=== PATIENT | female | born 1995 ===

== ENCOUNTER 2017-04-15 16:28 | Emergency (ER) | payer OTHER ==
[2017-04-15 17:45] LABS: EGFR Non-African American 103.3 (>60)
[2017-04-15 17:49] LABS: ABS Basophils 0 10^3/ul (0-0.2); ABS Eosinophils 0 10^3/ul (0-0.6); ABS Lymphocytes 1.5 10^3/ul (1.0-4.8); ABS Monocytes 0.4 10^3/ul (0-0.8); ABS Nucleated RBC 0 10^3/ul; Eosinophil % 0.1 % (0-6); Hematocrit 40 % (35-47); Hemoglobin 13.8 g/dl (12.0-16.0); Lymphocyte % 16.9 % (25-47); Mean Corpuscular HGB Conc 35 g/dl (31-36); Mean Corpuscular Hemoglobin 29 pg (27-31); Mean Corpuscular Volume 84 fL (80-97); Mean Platelet Volume 8 um3 (7.4-10.4); Nucleated Red Blood Cells % 0; Platelet Count 273 10^3/ul (150-450); Red Blood Count 4.72 10^6/ul (4.0-5.4); Red Cell Distribution Width 13 % (10.5-15)
[2017-04-15] MEDS ORDERED: Iohexol 350* (CONTRAST) 500 ML MDV IV ONE (18:34)
--- NOTE | 2017-04-15 18:43 | ED ---
Ran Nugent Thomas, scribed for Margarito Banuelos MD on 04/15/17 at 1839 . HPI Chest Pain - HPI Summary HPI Summary: The patient is a 22 year old female referred from [facility] to rule out pulmonary embolism. The patient complains of chest tightness on both sides of her chest that began last week, went away, and then came back three days ago. The pain is worse with exertion. The patient is on oral contraceptives. She denies calf pain. - History of Current Complaint Chief Complaint: EDChestWallPain Time Seen by Provider: 04/15/17 18:26 Hx Obtained From: Patient Onset/Duration: Started Weeks Ago - one week, Still Present Timing: Constant Current Severity: Moderate Pain Intensity: 4 Pain Scale Used: 0-10 Numeric Character: Tightness Aggravating Factor(s): Other: - Exertion Alleviating Factor(s): Nothing Associated Signs and Symptoms: Positive: Chest Pain. Negative: Fever, Other: - calf pain - Allergy/Home Medications Home Medications: Home Medications Albuterol HFA INHALER* [Ventolin HFA Inhaler*] 2 puff INH .Q4-6H PRN 04/15/17 [ History Confirmed 04/15/17] Estradiol/Norethindrone Acet [Activella 1 mg-0.5 mg Tablet] 1 each PO DAILY [History Confirmed 04/15/17] PMH/Surg Hx/FS Hx/Imm Hx Endocrine/Hematology History: Denies: Hx Diabetes Cardiovascular History: Denies: Hx Hypertension Infectious Disease History: No Infectious Disease History: Denies: Traveled Outside the [place] in Last 30 Days - Family History Known Family History: Positive: Hypertension - Social History Occupation: Student Alcohol Use: None Hx Substance Use: No Substance Use Type: Reports: None Hx Tobacco Use: No Smoking Status (MU): Never Smoked Tobacco Review of Systems Negative: Fever Positive: Chest Pain Negative: Other - calf tenderness All Other Systems Reviewed And Are Negative: Yes Physical Exam - Summary Physical Exam Summary: VITAL SIGNS: Reviewed. GENERAL: Patient is a well-developed and nourished female who is lying comfortable in the stretcher. Patient is not in any acute respiratory distress. HEAD AND FACE: No signs of trauma. No ecchymosis, hematomas or skull depressions. No sinus tenderness. EYES: PERRLA, EOMI x 2, No injected conjunctiva, no nystagmus. EARS: Hearing grossly intact. Ear canals and tympanic membranes are within normal limits. MOUTH: Oropharynx within normal limits. NECK: Supple, trachea is midline, no adenopathy, no JVD, no carotid bruit, no c- spine tenderness, neck with full ROM. CHEST: Symmetric, no tenderness at palpation LUNGS: Clear to auscultation bilaterally. No wheezing or crackles. CVS: Regular rate and rhythm, S1 and S2 present, no murmurs or gallops appreciated. ABDOMEN: Soft, non-tender. No signs of distention. No rebound no guarding, and no masses palpated. Bowel sounds are normal. EXTREMITIES: FROM in all major joints, no edema, no cyanosis or clubbing. NEURO: Alert and oriented x 3. No acute neurological deficits. Speech is normal and follows commands. SKIN: Dry and warm Triage Information Reviewed: Yes Vital Signs On Initial Exam: Initial Vitals Temp Pulse Resp BP Pulse Ox 99.1 F 89 20 135/80 99 04/15/17 16:32 04/15/17 16:32 04/15/17 16:32 04/15/17 16:32 04/15/17 16:32 Vital Signs Reviewed: Yes Diagnostics - Vital Signs Vital Signs Temp Pulse Resp BP Pulse Ox 04/15/17 16:32 99.1 F 89 20 135/80 99 - Laboratory Lab Results: Lab Results 04/15/17 04/15/17 04/15/17 Range/Units 17:22 17:22 17:22 WBC 9.0 (3.5-10.8) 10^3/ul RBC 4.72 (4.0-5.4) 10^6/ul Hgb 13.8 (12.0-16.0) g/dl Hct 40 (35-47) % MCV 84 (80-97) fL MCH 29 (27-31) pg MCHC 35 (31-36) g/dl RDW 13 (10.5-15) % Plt Count 273 (150-450) 10^3/ul MPV 8 (7.4-10.4) um3 Neut % (Auto) 77.8 (38-83) % Lymph % (Auto) 16.9 L (25-47) % Stephenson % (Auto) 4.7 (1-9) % Eos % (Auto) 0.1 (0-6) % Baso % (Auto) 0.5 (0-2) % Absolute Neuts (auto) 7.0 (1.5-7.7) 10^3/ul Absolute Lymphs (auto) 1.5 (1.0-4.8) 10^3/ul Absolute Monos (auto) 0.4 (0-0.8) 10^3/ul Absolute Eos (auto) 0 (0-0.6) 10^3/ul Absolute Basos (auto) 0 (0-0.2) 10^3/ul Absolute Nucleated RBC 0 10^3/ul Nucleated RBC % 0 D-Dimer, Quantitative 508 H (Less Than 230) ng/mL Sodium 135 (133-145) mmol/L Potassium 3.8 (3.5-5.0) mmol/L Chloride 100 L (101-111) mmol/L Carbon Dioxide 27 (22-32) mmol/L Anion Gap 8 (2-11) mmol/L BUN 12 (6-24) mg/dL Creatinine 0.72 (0.51-0.95) mg/dL Est GFR ( Amer) 132.8 (>60) Est GFR (Non-Af Amer) 103.3 (>60) BUN/Creatinine Ratio 16.7 (8-20) Glucose 90 (70-100) mg/dL Calcium 9.7 (8.6-10.3) mg/dL Total Bilirubin 0.30 (0.2-1.0) mg/dL AST 20 (13-39) U/L ALT Pending Alkaline Phosphatase 86 (34-104) U/L Total Protein 8.0 (6.4-8.9) g/dL Albumin 4.5 (3.2-5.2) g/dL Globulin 3.5 (2-4) g/dL Albumin/Globulin Ratio 1.3 (1-3) Result Diagrams: 04/15/17 17:22 04/15/17 17:22 Lab Statement: Any lab studies that have been ordered have been reviewed, and results considered in the medical decision making process. - CT CTA Chest/Thorax CT Interpretation Completed By: Radiologist - ORDERED AND PENDING--SEE [facility] - EKG 18:28 Cardiac Rate: NL EKG Rhythm: Sinus Rhythm - at 60 BPM EKG Interpretation: No ST elevations. Chest Pain Course/Dx - Course Assessment/Plan: The patient is a 22 year old female referred from [facility] to rule out pulmonary embolism. The patient complains of chest tightness on both sides of her chest that began last week, went away, and then came back three days ago. The pain is worse with exertion. The patient is on oral contraceptives. She denies calf pain. Test results are without significant abnormalities except D-dimer 508. Since the patient is taking oral contraceptives, the nurse practitioner at [facility] sent the patient to rule out a pulmonary embolism. Therefore, I ordered a CTA Chest, which at this time is pending. Therefore, the patient will be signed out to Dr. Vasquez to follow up on the CTA Chest and disposition of the patient. - Diagnoses Provider Diagnoses: Dyspnea, rule out PE Discharge - Discharge Plan Condition: Stable Disposition: OTHER Discharge Disposition Comment: Signed out to Dr. Vasquez, pending CTA Chest, awaiting disposition. Referrals: No Primary Care Phys,NOPCP [Primary Care Provider] - The documentation as recorded by the Ran espinal Thomas accurately reflects the service I personally performed and the decisions made by me, Margarito Banuelos MD.
--- NOTE | 2017-04-15 19:06 | RAD ---
INDICATION: Chest pain. Short of breath. Evaluate for pulmonary embolus. COMPARISON: None TECHNIQUE: Axial source images were obtained from the thoracic inlet to the hemidiaphragms following administration of [address] angiographic technique was utilized. Coronal and sagittal reconstructed images were acquired. CHEST FINDINGS: Neck/thyroid: The visualized neck to include the thyroid appear normal. Chest wall: There are no acute abnormalities of the bony thorax or chest wall. There is moderate kyphoscoliosis There is no supraclavicular, infraclavicular, or axillary lymphadenopathy. Lungs : There are no pulmonary parenchymal masses or infiltrates. The pulmonary interstitium appears normal. There are no endobronchial lesions. Cardiomediastinal structures: There is no CT evidence of acute pulmonary embolic disease. The heart is normal in size. There is no pericardial effusion. There is no evidence of aortic aneurysm or dissection. There is no mediastinal or hilar adenopathy. The esophagus appears normal. Pleura : There are no pleural-based masses or effusions. Other: None. IMPRESSION: NO CT EVIDENCE OF ACUTE PULMONARY EMBOLIC DISEASE. LUNGS CLEAR. SCOLIOSIS.
--- NOTE | 2017-04-15 20:07 | ED ---
Jorge Nugent Tecjoon, scribed for Yenifer Vasquez MD on 04/15/17 at 2000 . Progress - Progress Note Progress Note: CT Chest/Thorax reveals, per radiologist, IMPRESSION: NO CT EVIDENCE OF ACUTE PULMONARY EMBOLIC DISEASE. LUNGS CLEAR. SCOLIOSIS. ED physician has reviewed this radiology report. Course/Dx - Course Course Of Treatment: Patient was signed out from Dr. Banuelos at end of shift. Patient will be diagnosed with atypical chest pain following negative CTA Chest. Patient will be discharged and advised to follow up with PCP in 4 days. Patient is agreeable with this plan. - Diagnoses Provider Diagnoses: Dyspnea, rule out PE, Atypical chest pain The documentation as recorded by the Jorge espinal Tecjoon accurately reflects the service I personally performed and the decisions made by Pedro connolly Abdul, MD.
[2017-04-15 20:13] VITALS: BP 128/75
== END 2017-04-15 20:04 ==
LOC: ED 16:28
DX: R06.00 Dyspnea, unspecified (principal); R07.89 Other chest pain
CPT/HCPCS: 36415; 71275; 80053; 85025; 85379; 93005; 96374; 99283; Q9967